=== PATIENT | female | born 1935 | race Caucasian/White ===

== ENCOUNTER 2020-07-25 11:28 | Inpatient (IN) | payer MEDICARE, OTHER ==
[~2020-07-25] VITALS: Ht 152.4 cm; Wt 89.4 kg
[2020-07-25] MEDS ORDERED: ACETAMINOPHEN 325 MG TABLET PO ONE (11:45)
[2020-07-25] MEDS ORDERED: MORPHINE SULFATE 2 MG/1 ML DISP.SYRIN IV ONE (11:45)
[2020-07-25] MEDS ORDERED: ONDANSETRON 4 MG/2 ML VIAL IV ONE ×2 (11:45→13:30)
[2020-07-25] MEDS ORDERED: ACETAMINOPHEN 325 MG TABLET ONE (11:48)
[2020-07-25] MEDS ORDERED: MORPHINE SULFATE 4 MG/1 ML DISP.SYRIN ONE (11:49)
[2020-07-25] MEDS ORDERED: ONDANSETRON 4 MG/2 ML VIAL ONE (11:49)
--- NOTE | 2020-07-25 11:51 | NUR ---
PT out of ER for CT.
[2020-07-25 12:00] LABS: BASOPHILS % (AUTO) 0.6 % (0.0-2.0); EOSINOPHILS # (AUTO) 0.1 K/uL (0.0-0.7); EOSINOPHILS % (AUTO) 1.1 % (0.0-7.0); HEMATOCRIT 34.1 % (31.2-41.9); HEMOGLOBIN 11.2 g/dL (10.9-14.3); LYMPHOCYTES # (AUTO) 0.8 K/uL (20.0-40.0); LYMPHOCYTES % (AUTO) 11.4 % (20.5-51.5); MEAN CORPUSCULAR HEMOGLOBIN 27.1 uug (24.7-32.8); MEAN CORPUSCULAR HGB CONC 33 g/dL (32.3-35.6); MEAN CORPUSCULAR VOLUME 82.3 fL (75.5-95.3); MONOCYTES # (AUTO) 0.6 K/uL (2.0-10.0); MONOCYTES % (AUTO) 7.9 % (0.0-11.0); NEUTROPHILS # (AUTO) 5.8 K/uL (1.8-8.9); PLATELET COUNT (AUTO) 369 K/uL (179-408); RED BLOOD CELL COUNT(AUTO) 4.14 MIL/uL (3.63-4.92); WHITE BLOOD COUNT (AUTO) 7.3 K/uL (3.8-11.8)
[2020-07-25] MEDS ORDERED: HYDR-3972 PO (12:00)
[2020-07-25] MEDS ORDERED: SIMV-49 PO (12:00)
[2020-07-25] MEDS ORDERED: INSU100V11 SQ (12:00)
[2020-07-25] MEDS ORDERED: CLOP75TA15 PO (12:00)
[2020-07-25] MEDS ORDERED: DILT-2 PO (12:00)
[2020-07-25] MEDS ORDERED: AZIL40TA PO (12:00)
[2020-07-25] MEDS ORDERED: FURO-151 PO (12:00)
[2020-07-25] MEDS ORDERED: ESCI10TA PO (12:00)
[2020-07-25] MEDS ORDERED: POTA10CA43 PO (12:00)
[2020-07-25] MEDS ORDERED: LANTUS SQ (12:00)
[2020-07-25] MEDS ORDERED: MECL-159 PO (12:00)
[2020-07-25] MEDS ORDERED: AZIL1TAB3 PO (12:00)
[2020-07-25 12:12] LABS: BILIRUBIN,DIRECT 0.2 mg/dL (0.0-0.2); BILIRUBIN,TOTAL 0.6 mg/dL (0.2-1.0); CREATININE 1.1 mg/dL (0.6-1.3); POTASSIUM 3.8 mmol/L (3.5-5.1); TOTAL PROTEIN, SERUM 7.3 g/dL (6.4-8.2)
--- NOTE | 2020-07-25 12:16 | NUR ---
Pt back from Ct, resting in bed. Pt states feeling better, and pain decreased.
--- NOTE | 2020-07-25 12:40 | NUR ---
COVID swab collected and sent to LAB.
[2020-07-25] MEDS ORDERED: FUROSEMIDE 40 MG/4 ML VIAL IV ONE (12:45)
[2020-07-25] MEDS ORDERED: ASPIRIN 81 MG TAB.CHEW PO ONE (12:45)
[2020-07-25] MEDS ORDERED: FUROSEMIDE 40 MG/4 ML VIAL ONE (12:55)
[2020-07-25] MEDS ORDERED: ASPIRIN 81 MG TAB.CHEW ONE (12:55)
--- NOTE | 2020-07-25 13:04 | NUR ---
Pt sleeping on the side, stating it feels better. Pt requested not to have monitor on at this time.
[2020-07-25] MEDS ORDERED: FENTANYL CITRATE 100 MCG/2 ML AMPUL IV ONE (13:15)
[2020-07-25] MEDS ORDERED: FENTANYL CITRATE 100 MCG/2 ML AMPUL ONE (13:22)
[2020-07-25] MEDS ORDERED: IV NORMAL SALINE 1000 ML BAG IV ONE (13:30)
--- NOTE | 2020-07-25 13:48 | NUR ---
Patient is resting comfortably in bed with eyes closed, NAD noted.
[2020-07-25] MEDS ORDERED: HYDROCODONE/APAP 5-325MG TABLET PO PRN (16:15)
[2020-07-25] MEDS ORDERED: MECLIZINE HCL 25 MG TABLET PO PRN (16:15)
[2020-07-25 16:20] VITALS: BP 159/57
[2020-07-25] MEDS ORDERED: ONDANSETRON 4 MG/2 ML VIAL IV PRN (16:30)
[2020-07-25] MEDS ORDERED: INSULIN REGULAR, HUMAN 300 UNITS/3 ML VIAL SQ PRN (16:30)
[2020-07-25] MEDS ORDERED: Z GUARD REMEDY PASTE 57 GM TUBE TOP PRN (16:30)
[2020-07-25] MEDS ORDERED: DEXTROSE 50% 50 ML DISP.SYRIN IV PRN ×2 (16:30→22:00)
[2020-07-25] MEDS ORDERED: INSULIN REGULAR, HUMAN 300 UNIT/3 ML VIAL SQ PRN (16:30)
[2020-07-25] MEDS ORDERED: MAGNESIUM HYDROXIDE 30 ML LIQUID UDC PO PRN (16:30)
[2020-07-25] MEDS ORDERED: BUMETANIDE INJ 4 MG in IV DEXTROSE 5% 24 ML IV ONE (16:45)
[2020-07-25] MEDS: BLOOD SUGAR DIAGNOSTIC 1 EACH STRIP VI SCH ×4 (17:15→21:00)
--- NOTE | 2020-07-25 17:30 | NUR ---
Received patient from ER via [place], on 2 LPM oxygen via [place]. Patient is alert, [place] speaking, not in any form of distress. Spoke to the daughter Amira for history and translated the conversation with the patient. No complain of any pain at this time. Patient admitted to telemetry. Routine admission care done. Informed Ramiro Tate DNP regarding admission. Patient seen and examined by Ramiro Tate DNP and Dr. Stanford (senior service technician). Patient pulled out peripheral line. Inserted a new line on the right hand G22. Assisted with her needs. Oriented patient to staff, room and use of devices with verbalized understanding. Call light and frequently used items placed within patient's reach.
--- NOTE | 2020-07-25 18:02 | NUR ---
Informed Ramiro Tate DNP regarding troponin result of 0.430, no new order.
[2020-07-25] MEDS: HYDROCODONE/APAP 5-325MG TABLET PO PRN ×2 (18:21→23:32)
[2020-07-25] MEDS: LISINOPRIL 10 MG TABLET PO SCH (18:42)
[2020-07-25] MEDS: INSULIN GLARGINE,HUM 300 UNITS/3 ML CARTRIDGE SQ SCH (21:00)
[2020-07-25] MEDS: SIMVASTATIN 10 MG TABLET PO SCH (21:29)
--- NOTE | 2020-07-25 22:30 | NUR ---
blood sugar in the 50's given OJ and D50; result relayed to Dr Tate with new orders to hold tonight's lantus and change aggressive coverage to mild. blood sugar went up to 200s; continue to monitor.
[2020-07-26 00:09] VITALS: BP 123/56
[2020-07-26] MEDS: ZOLPIDEM 5 MG TABLET PO PRN ×2 (01:48→22:10)
[2020-07-26] MEDS: HYDROCODONE/APAP 5-325MG TABLET PO PRN ×2 (04:08→08:11)
[2020-07-26 04:09] VITALS: BP 140/77
[2020-07-26] MEDS: BLOOD SUGAR DIAGNOSTIC 1 EACH STRIP VI SCH ×4 (06:28→21:00)
[2020-07-26 07:27] LABS: CREATININE 1.2 mg/dL (0.6-1.3); MAGNESIUM 1.7 mg/dL (1.8-2.4); PHOSPHOROUS 4.1 mg/dL (2.5-4.9); POTASSIUM 3.7 mmol/L (3.5-5.1)
[2020-07-26 07:37] LABS: BASOPHILS # (AUTO) 0.1 K/uL (0.0-8.0); BASOPHILS % (AUTO) 0.9 % (0.0-2.0); EOSINOPHILS # (AUTO) 0.2 K/uL (0.0-0.7); EOSINOPHILS % (AUTO) 3.2 % (0.0-7.0); HEMATOCRIT 32.4 % (31.2-41.9); HEMOGLOBIN 10.8 g/dL (10.9-14.3); LYMPHOCYTES # (AUTO) 1.2 K/uL (20.0-40.0); LYMPHOCYTES % (AUTO) 15.6 % (20.5-51.5); MEAN CORPUSCULAR HEMOGLOBIN 27.3 uug (24.7-32.8); MEAN CORPUSCULAR HGB CONC 33 g/dL (32.3-35.6); MEAN CORPUSCULAR VOLUME 82.1 fL (75.5-95.3); MONOCYTES # (AUTO) 0.7 K/uL (2.0-10.0); MONOCYTES % (AUTO) 9.5 % (0.0-11.0); NEUTROPHILS # (AUTO) 5.2 K/uL (1.8-8.9); NEUTROPHILS % (AUTO) 70.8 % (38.5-71.5); PLATELET COUNT (AUTO) 363 K/uL (179-408); RED BLOOD CELL COUNT(AUTO) 3.95 MIL/uL (3.63-4.92); WHITE BLOOD COUNT (AUTO) 7.4 K/uL (3.8-11.8)
--- NOTE | 2020-07-26 07:45 | NUR ---
RECEIVED PATIENT IN ROOM SLEEPING, EASY TO AWAKE. AOX2. COMPLAINS OF PAIN TO LOWER BACK AND BLE. WILL RECEIVE PAIN MEDICATION ORDERED. DENIES SOB OR CHEST PAIN AT THIS TIME. ON 2L O2 NC. SAFETY AND FALL PREVENTION IN PLACE. BED IN LOW AND LOCKED POSITION. CALL LIGHT IN REACH. BED ALARM ON. WILL CONTINUE TO MONITOR.
[2020-07-26] MEDS: CLOPIDOGREL 75 MG TABLET PO SCH (08:12)
[2020-07-26] MEDS: ASPIRIN EC 81 MG TABLET.DR PO SCH (08:12)
[2020-07-26] MEDS: POTASSIUM CHLORIDE 8 MEQ TAB.PRT.SR PO SCH (08:12)
[2020-07-26] MEDS: DILTIAZEM HCL CD 120 MG CAP.SR.24H PO SCH (08:12)
[2020-07-26] MEDS: ESCITALOPRAM OXALATE 10 MG TABLET PO SCH (08:12)
[2020-07-26] MEDS: LISINOPRIL 10 MG TABLET PO SCH (08:12)
[2020-07-26] MEDS: INSULIN REGULAR, HUMAN 300 UNIT/3 ML VIAL SQ PRN ×4 (08:21→22:16)
[2020-07-26] MEDS ORDERED: FUROSEMIDE 40 MG TABLET PO SCH (09:00)
[2020-07-26] MEDS ORDERED: MAGNESIUM SULFATE 1 GM in IV DEXTROSE 5% 100 ML IV SCH (10:15)
[2020-07-26] MEDS: ACETAMINOPHEN 325 MG TABLET PO PRN (10:56)
[2020-07-26] MEDS: MAGNESIUM SULFATE/D5W 100 ML IV SCH ×2 (11:01→12:15)
[2020-07-26 12:20] VITALS: BP 158/67
[2020-07-26] MEDS: HYDROCODONE/APAP 10-325 MG TABLET PO PRN ×2 (12:44→17:37)
[2020-07-26] MEDS: APIXABAN 2.5 MG TABLET PO SCH ×2 (14:50→22:15)
[2020-07-26 16:08] VITALS: BP 139/55
[2020-07-26] MEDS: FUROSEMIDE 40 MG TABLET PO SCH (16:26)
[2020-07-26] MEDS ORDERED: DEXAMETHASONE SOD PHOSPHATE 10 MG INJ IM ONE (18:45)
[2020-07-26] MEDS ORDERED: KETOROLAC TROMETHAMINE 30 MG INJ IVP ONE (18:45)
[2020-07-26 20:00] VITALS: BP 168/64
[2020-07-26] MEDS: SIMVASTATIN 10 MG TABLET PO SCH (22:10)
[2020-07-26] MEDS: INSULIN GLARGINE,HUM 300 UNITS/3 ML CARTRIDGE SQ SCH (22:16)
[2020-07-27] VITALS: BP 140/76
[2020-07-27] MEDS: HYDROCODONE/APAP 10-325 MG TABLET PO PRN ×3 (01:32→10:28)
[2020-07-27 06:27] VITALS: BP 114/69
[2020-07-27] MEDS: BLOOD SUGAR DIAGNOSTIC 1 EACH STRIP VI SCH ×4 (07:46→21:22)
[2020-07-27 08:00] VITALS: BP 152/74
[2020-07-27] MEDS: INSULIN REGULAR, HUMAN 300 UNIT/3 ML VIAL SQ PRN ×3 (08:10→17:31)
[2020-07-27] MEDS ORDERED: QUETIAPINE FUMARATE 25 MG TABLET PO ONE (09:00)
[2020-07-27] MEDS: FUROSEMIDE 40 MG TABLET PO SCH ×2 (09:19→17:22)
[2020-07-27] MEDS: POTASSIUM CHLORIDE 8 MEQ TAB.PRT.SR PO SCH (09:19)
[2020-07-27] MEDS: DILTIAZEM HCL CD 120 MG CAP.SR.24H PO SCH (09:19)
[2020-07-27] MEDS: ESCITALOPRAM OXALATE 10 MG TABLET PO SCH (09:19)
[2020-07-27] MEDS: ASPIRIN EC 81 MG TABLET.DR PO SCH (09:20)
[2020-07-27] MEDS: CLOPIDOGREL 75 MG TABLET PO SCH (09:20)
[2020-07-27] MEDS: LISINOPRIL 10 MG TABLET PO SCH (09:20)
[2020-07-27] MEDS: APIXABAN 2.5 MG TABLET PO SCH (09:21)
--- NOTE | 2020-07-27 10:49 | NUR ---
called radiology for CT lumbar spine. Wasn't able to bring patient down since patient woke up and got agitated and screaming. [employer] technician will come back later
[2020-07-27] MEDS ORDERED: INSULIN REGULAR, HUMAN 300 UNITS/3 ML VIAL SQ PRN (11:00)
[2020-07-27] MEDS ORDERED: DEXTROSE 50% 50 ML DISP.SYRIN IV PRN (11:00)
[2020-07-27 11:32] VITALS: BP 153/71
[2020-07-27] MEDS: MORPHINE SULFATE 2 MG/1 ML DISP.SYRIN IV PRN ×2 (11:48→19:37)
[2020-07-27] MEDS: CELECOXIB 100 MG CAPSULE PO SCH ×2 (15:57→20:06)
[2020-07-27 16:15] VITALS: BP 119/50
[2020-07-27] MEDS: OXYCODONE/APAP 5-325 MG TABLET PO PRN (18:00)
--- NOTE | 2020-07-27 18:59 | NUR ---
Patient in bed asleep at this time, on O2 @ 2L with no SOB or distress at this time. Patient very agitated and restless throughout shift. Yelling and trying to get out of chair. Pain management provided, Dr. Araujo came in to see patient. Informed daughter throughout shift regarding the situation. Called radiology for CT Lumbar spine since patient is calm now. Safety precaution and aspiration precaution in place. Not in distress at this time
--- NOTE | 2020-07-27 19:30 | NUR ---
Pt in bed, awake. Yelling and trying to get out of bed. Denies any acute distress/SOB. But complains of pain. Will assess and check if PRN medication is available. V/S stable on 2L NC tolerating well. NSR on tele monitor. Safety measures in place. Call light within reach. Will continue with the plan of care.
[2020-07-27 20:00] VITALS: BP 126/50
[2020-07-27] MEDS: SIMVASTATIN 10 MG TABLET PO SCH (20:06)
[2020-07-27] MEDS: APIXABAN 5 MG TABLET PO SCH (20:07)
[2020-07-27] MEDS ORDERED: INSULIN GLARGINE,HUM 300 UNITS/3 ML CARTRIDGE SQ SCH (21:00)
[2020-07-27] MEDS: ZOLPIDEM 5 MG TABLET PO PRN (22:37)
[2020-07-27] MEDS: ACETAMINOPHEN 325 MG TABLET PO PRN (22:37)
[2020-07-28] VITALS: BP 115/49
[2020-07-28] MEDS: OXYCODONE/APAP 5-325 MG TABLET PO PRN ×2 (02:23→09:19)
[2020-07-28 04:00] VITALS: BP 141/59
[2020-07-28] MEDS: ACETAMINOPHEN 325 MG TABLET PO PRN (05:00)
--- NOTE | 2020-07-28 06:11 | NUR ---
PT SLEPT INTERMITTENTLY THROUGH THE NIGHT. PT SCREAMING AND TRYING TO GET OUT OF BED. PAIN MANAGED THROUGHOUT THE SHIFT. REPOSITIONED Q2H FOR COMFORT. V/S STABLE ON 2L. COMFORT CARE AND NEEDS ATTENDED. FALL AND ASPIRATION PRECAUTION MAINTAINED. SAFETY MEASURES IN PLACE. BED LOW AND LOCKED IN POSITION. CALL LIGHT WITHIN REACH. WILL ENDORSE TO ONCOMING NURSE ACCORDINGLY.
[2020-07-28] MEDS: BLOOD SUGAR DIAGNOSTIC 1 EACH STRIP VI SCH ×2 (06:34→12:02)
--- NOTE | 2020-07-28 08:00 | NUR ---
Noted edema+3 on ALY LE's and Redness noted. PT is in no acute distress. Pt on fall and aspiration precaution. Pain management implemented. Call light is within reach.
[2020-07-28] MEDS: CLOPIDOGREL 75 MG TABLET PO SCH (08:13)
[2020-07-28] MEDS: FUROSEMIDE 40 MG TABLET PO SCH (08:13)
[2020-07-28] MEDS: ESCITALOPRAM OXALATE 10 MG TABLET PO SCH (08:13)
[2020-07-28] MEDS: POTASSIUM CHLORIDE 8 MEQ TAB.PRT.SR PO SCH (08:13)
[2020-07-28] MEDS: LISINOPRIL 10 MG TABLET PO SCH (08:14)
[2020-07-28] MEDS: DILTIAZEM HCL CD 120 MG CAP.SR.24H PO SCH (08:14)
[2020-07-28] MEDS: APIXABAN 5 MG TABLET PO SCH (08:15)
[2020-07-28] MEDS: CELECOXIB 100 MG CAPSULE PO SCH (08:15)
[2020-07-28] MEDS: INSULIN REGULAR, HUMAN 300 UNIT/3 ML VIAL SQ PRN ×2 (08:18→12:15)
[2020-07-28] MEDS: ASPIRIN EC 81 MG TABLET.DR PO SCH (08:24)
[2020-07-28] MEDS: MORPHINE SULFATE 2 MG/1 ML DISP.SYRIN IV PRN ×2 (08:31→15:09)
[2020-07-28 12:00] VITALS: BP 148/47
[2020-07-28] MEDS ORDERED: GLUCERNA SHAKE 237 ML CAN PO SCH (12:30)
[2020-07-28] MEDS ORDERED: CELE100C PO (12:45)
[2020-07-28] MEDS ORDERED: DEXL60CA3 PO (12:45)
[2020-07-28 15:39] VITALS: BP 126/57
--- NOTE | 2020-07-28 16:00 | NUR ---
Spoke with HEMALATHA, daughter of patient, about discharge instructions. Instructed to set appt with DR NOVAK ([facility] given)for pain management As soon as possible. IV DC. Pt is in no acute distress. No sob noted. o2 sat 95% R/A. Pt will f/u with PMD re Vaccinations and to make appt within 1 week.
== END 2020-07-28 15:45 | disposition home or self-care (01) | DRG 280 ==
LOC: ER 11:28 → TELE3 14:42
PROVIDERS: ADMIT Nurse Practitioner Acute Care; ATTEND Nurse Practitioner Acute Care
DX: I11.0 Hypertensive heart disease with heart failure (principal); I21.4 Non-ST elevation (NSTEMI) myocardial infarction; E43 Unspecified severe protein-calorie malnutrition; D68.69 Other thrombophilia; I25.10 Atherosclerotic heart disease of native coronary artery without angina pectoris; Z95.5 Presence of coronary angioplasty implant and graft; E78.5 Hyperlipidemia, unspecified; Z79.02 Long term (current) use of antithrombotics/antiplatelets; G89.4 Chronic pain syndrome; E66.01 Morbid (severe) obesity due to excess calories; J44.9 Chronic obstructive pulmonary disease, unspecified; I48.91 Unspecified atrial fibrillation; Z79.899 Other long term (current) drug therapy; I89.0 Lymphedema, not elsewhere classified; Z68.38 Body mass index [BMI] 38.0-38.9, adult; J45.909 Unspecified asthma, uncomplicated; M47.27 Other spondylosis with radiculopathy, lumbosacral region; I50.43 Acute on chronic combined systolic (congestive) and diastolic (congestive) heart failure; E11.9 Type 2 diabetes mellitus without complications; M48.061 Spinal stenosis, lumbar region without neurogenic claudication; Z91.81 History of falling; M43.17 Spondylolisthesis, lumbosacral region
CPT/HCPCS: 36415; 70030-TC; 71045; 72131; 83690; 83735; 84100; 85025; 93005; 93307; A4663; G0378; J1100; J1815; J1885; J1940; J2270; J2405; J3010; J3475; J3490; J7030; J7040; J7060

== ENCOUNTER 2021-08-18 13:42 | Inpatient (IN) | payer MEDICARE, OTHER ==
[~2021-08-18] VITALS: Ht 157.5 cm; Wt 82.8 kg
[~2021-08-18 13:42] MED LIST: AZIL1TAB3 PO; AZIL40TA PO; CELE100C PO; CLOP75TA15 PO; DEXL60CA3 PO; DILT-2 PO; ESCI10TA PO; FURO-151 PO; HYDR-3972 PO; INSU100V11 SQ; LANTUS SQ; MECL-159 PO; POTA10CA43 PO; SIMV-49 PO
--- NOTE | 2021-08-18 13:55 | NUR ---
Patient BIB [facility] from home, c/o dizziness, almost falling/blacking out few hours [employer]. Pt also c/o nausea. First contact, patient AO x 3, no signs of acute distress. VSS. Denies chest pain or palpitation at this time. Noted with bilateral leg swelling and redness, with hx of CHF. Pt ambulatory with steady gait, need standby assistance. No other concerns otherwise. Kep comfortable in bed, with blankets and side rails up x 2.
--- NOTE | 2021-08-18 13:59 | NUR ---
Dr Lacy at bedside for MSE.
[2021-08-18] MEDS ORDERED: ONDANSETRON HCL 4 MG TABLET PO ONE (14:15)
[2021-08-18] MEDS ORDERED: IV NORMAL SALINE 500 ML BAG IV ONE (14:15)
[2021-08-18 14:35] LABS: MEAN CORPUSCULAR HEMOGLOBIN 28.4 uug (24.7-32.8); MEAN CORPUSCULAR VOLUME 85.2 fL (75.5-95.3); PLATELET COUNT (AUTO) 355 K/uL (179-408)
[2021-08-18 14:45] LABS: CARBON DIOXIDE 28 mmol/L (21-32); CHLORIDE 106 mmol/L (98-107); CREATININE 1.5 mg/dL (0.6-1.3); GLUCOSE 128 mg/dL (74-106); POTASSIUM 4.6 mmol/L (3.5-5.1); UREA NITROGEN, BLOOD 35 mg/dL (7-18)
[2021-08-18 14:50] LABS: ALANINE AMINOTRANSFERASE 19 U/L (14-59); ALKALINE PHOSPHATASE 98 U/L (50-136); ASPARTATE AMINOTRANSFERASE 10 U/L (15-37); BILIRUBIN,DIRECT 0.1 mg/dL (0.0-0.2); BILIRUBIN,TOTAL 0.5 mg/dL (0.2-1.0); TOTAL PROTEIN, SERUM 6.9 g/dL (6.4-8.2)
[2021-08-18] MEDS ORDERED: ONDANSETRON 4 MG/2 ML VIAL ONE (15:04)
--- NOTE | 2021-08-18 15:59 | NUR ---
Nursing telesales supervisor made aware that patinet is pending admission/need 1 tele female bed.
--- NOTE | 2021-08-18 16:27 | NUR ---
PT'S DAUGHTER TO BRING UPDATED MED LIST AOON POSSIBLE.
--- NOTE | 2021-08-18 16:30 | NUR ---
Paged EPIC panel call.
--- NOTE | 2021-08-18 16:49 | NUR ---
Dr Beltran s/w Dr Lacy and accepted patient into Tele/Syncope. Dtr at bedside stated that she will take all pt's belongings. Pt will be sent upstairs with no belongings.
--- NOTE | 2021-08-18 17:30 | NUR ---
Per Nursing [employer], no admission nurses this shift, patient will have to be held in ED in the time being until next shift. Pt is resting with no signs of distress, denies chest pain, palpitations or dizziness.
--- NOTE | 2021-08-18 17:49 | NUR ---
Patient's blood sugar before dinner is 129. Pt has a freestyle blood sugar machine connected subcutaneously on her LLQ abdomen. Diabetic Dinner provided. Pt able to feed herself.
--- NOTE | 2021-08-18 18:20 | NUR ---
Pt able to ambulate from bed to bathroom and void x 3 during this shift.
[2021-08-18] MEDS ORDERED: BUTA-247 PO (18:29)
[2021-08-18] MEDS ORDERED: MV-M1TAB18 PO ×2 (18:29)
[2021-08-18] MEDS ORDERED: MIRT-93 PO (18:29)
[2021-08-18] MEDS ORDERED: AZIL1TAB3 PO (18:29)
[2021-08-18] MEDS ORDERED: EZET10TA15 PO (18:29)
[2021-08-18] MEDS ORDERED: PROP20TA7 PO (18:29)
[2021-08-18] MEDS ORDERED: POTA10CA43 PO (18:29)
[2021-08-18] MEDS ORDERED: FURO40TA5 PO (18:29)
[2021-08-18] MEDS ORDERED: SPIR25TA6 PO (18:29)
[2021-08-18] MEDS ORDERED: INSU100C4 SQ (18:29)
[2021-08-18] MEDS ORDERED: ISOS60TA72 PO (18:29)
[2021-08-18] MEDS ORDERED: INSU100V7 SQ (18:29)
[2021-08-18] MEDS ORDERED: ASPIRIN 81 MG TAB.CHEW PO ONE (18:45)
--- NOTE | 2021-08-18 18:49 | NUR ---
Patient resting in bed, no signs of distress. PO meds tolerated with no issues. Kept warm and comfortable, as verbalized. Will continue to monitor and endorse to incoming shift.
[2021-08-18] MEDS ORDERED: ASPIRIN 81 MG TAB.CHEW ONE (18:52)
--- NOTE | 2021-08-18 21:17 | NUR ---
Pt. admitted to Telemetry, under care of Dr. Beltran. Dx: syncope Belongs List completed
[2021-08-18 22:02] VITALS: BP 162/67
[2021-08-18] MEDS: MIRTAZAPINE 15 MG TABLET PO SCH (22:21)
[2021-08-18] MEDS: SIMVASTATIN 40 MG TABLET PO SCH (22:22)
[2021-08-19 04:22] VITALS: BP 104/50
--- NOTE | 2021-08-19 05:27 | NUR ---
Pt admitted to Tele, SR on monitor. Denies chest pain or SOB at this time. Able to ambulate with assistance. IV site intact. No distress noted. Will endorse to day shift.
[2021-08-19] MEDS ORDERED: ONDANSETRON 4 MG/2 ML VIAL IV PRN (06:45)
[2021-08-19] MEDS ORDERED: ACETAMINOPHEN 325 MG TABLET PO PRN (06:45)
--- NOTE | 2021-08-19 07:15 | NUR ---
Received patient in bed. AOx4. On room air. No signs of acute distress. No signs of acute distress. Patient denies pain/ discomfort at this time. Patient denies chest pain. NSR on property assessment monitor. IV access patent and intact. Call light within reach. Bed alarm on for safety. Will continue to monitor.
[2021-08-19 07:58] LABS: HEMATOCRIT 35.1 % (31.2-41.9); MEAN CORPUSCULAR HEMOGLOBIN 28.1 uug (24.7-32.8); MEAN CORPUSCULAR VOLUME 85.4 fL (75.5-95.3); PLATELET COUNT (AUTO) 338 K/uL (179-408)
[2021-08-19 08:02] LABS: CREATININE 1.2 mg/dL (0.6-1.3); POTASSIUM 4.4 mmol/L (3.5-5.1)
[2021-08-19] MEDS: PANTOPRAZOLE SODIUM 40 MG TABLET.DR PO SCH (08:07)
[2021-08-19 08:08] LABS: BILIRUBIN,TOTAL 0.6 mg/dL (0.2-1.0); MAGNESIUM 1.8 mg/dL (1.8-2.4); PHOSPHOROUS 3.7 mg/dL (2.5-4.9); TOTAL PROTEIN, SERUM 6.3 g/dL (6.4-8.2)
[2021-08-19] MEDS: ISOSORBIDE MONONITRATE 60 MG TAB.SR.24H PO SCH ×2 (08:48→17:00)
[2021-08-19] MEDS: EZETIMIBE 10 MG TABLET PO SCH (08:48)
[2021-08-19] MEDS: CLOPIDOGREL 75 MG TABLET PO SCH (08:48)
[2021-08-19 10:46] LABS: THYROID STIMULATING HORMONE 1.57 mIU/mL (0.358-3.740)
[2021-08-19 11:49] VITALS: BP 117/51
[2021-08-19] MEDS ORDERED: DEXTROSE 50% 50 ML DISP.SYRIN IV PRN (12:00)
[2021-08-19 16:03] VITALS: BP 112/52
[2021-08-19] MEDS: BLOOD SUGAR DIAGNOSTIC 1 EACH STRIP VI SCH ×2 (17:01→21:47)
[2021-08-19] MEDS: INSULIN REGULAR, HUMAN 300 UNIT/3 ML VIAL SQ PRN ×2 (17:03→21:53)
--- NOTE | 2021-08-19 18:43 | NUR ---
Patient resting in bed. AOx4. On room air. No signs of acute distress. Patient compliant with medications and care. NSR on site monitor. IV access patent and intact. Bed locked and in low position for safety. Call light within reach. Will endorse to incoming shift for continuity of care.
[2021-08-19] MEDS: MIRTAZAPINE 15 MG TABLET PO SCH (20:08)
[2021-08-19] MEDS: SIMVASTATIN 40 MG TABLET PO SCH (20:08)
[2021-08-19] MEDS ORDERED: DOCUSATE SODIUM 250 MG CAPSULE PO SCH (21:00)
[2021-08-19] MEDS ORDERED: DOCUSATE SODIUM 100 MG CAPSULE PO SCH (21:00)
--- NOTE | 2021-08-19 22:10 | NUR ---
Patient alert and able to make needs known.Denies chest pain. On Ra.no respiratory distress noted. BS checked 297.Refused insulin at this time.Risk and benefits explained x3.Patient still refused.Stated she knows her BS will go down in the morning.Insisting not to give her insulin.NSr on tele.Assisted patient to bathroom.Voided well.Will continue to monitor.
[2021-08-20] VITALS: BP 138/54
[2021-08-20 04:00] VITALS: BP 136/56
[2021-08-20 05:28] LABS: HEMATOCRIT 34.8 % (31.2-41.9); MEAN CORPUSCULAR HEMOGLOBIN 28.3 uug (24.7-32.8); MEAN CORPUSCULAR VOLUME 86.1 fL (75.5-95.3); PLATELET COUNT (AUTO) 352 K/uL (179-408)
[2021-08-20 05:41] LABS: CREATININE 1.3 mg/dL (0.6-1.3); MAGNESIUM 1.9 mg/dL (1.8-2.4); PHOSPHOROUS 4.1 mg/dL (2.5-4.9); POTASSIUM 4.8 mmol/L (3.5-5.1)
[2021-08-20] MEDS: PANTOPRAZOLE SODIUM 40 MG TABLET.DR PO SCH (06:11)
[2021-08-20] MEDS: BLOOD SUGAR DIAGNOSTIC 1 EACH STRIP VI SCH (07:27)
--- NOTE | 2021-08-20 08:15 | NUR ---
offered patient humulin r as per order, per patient no i dont take that at home. I dont want that insulin, i want my insulin from home , explained risk and benefit against refusing insulin, per patient "my daughter is going to pick me up." explained again to patient that her blood sugar is 291 and that it is important to take insulin to prevent blood sugar from spiking, patient states no i wont take insulin but i will take my pills. morning po medication administered as ordered.
--- NOTE | 2021-08-20 08:30 | NUR ---
received call from daughter stating i am going to [employer] my mother. explained risk and benefits of leaving against medical advice, per daughter i understand i will sign the ama paperwork and i will pick her up. Henrry Duke notified.
[2021-08-20 09:08] VITALS: BP 145/70
[2021-08-20] MEDS: ISOSORBIDE MONONITRATE 60 MG TAB.SR.24H PO SCH (09:08)
[2021-08-20] MEDS: EZETIMIBE 10 MG TABLET PO SCH (09:08)
[2021-08-20] MEDS: CLOPIDOGREL 75 MG TABLET PO SCH (09:08)
--- NOTE | 2021-08-20 09:30 | NUR ---
Daughter in unit, all ama paperwork signed, again explained risk and benefits, all belongings accounted for. patient left with daughter. iv removed minimal bleeding noted to site, dressing applied, arm band removed as well. patient left with v/s wnl, ambulating with stable gait and with no signs of hyperglycemia.
== END 2021-08-20 10:00 | disposition left against medical advice (07) | DRG 280 ==
LOC: ER 13:42 → TELE3 21:31
PROVIDERS: ADMIT Internal Medicine; ATTEND Hospitalist
DX: I21.4 Non-ST elevation (NSTEMI) myocardial infarction (principal); N17.0 Acute kidney failure with tubular necrosis; I50.32 Chronic diastolic (congestive) heart failure; D68.59 Other primary thrombophilia; E44.0 Moderate protein-calorie malnutrition; E11.9 Type 2 diabetes mellitus without complications; I25.2 Old myocardial infarction; I25.10 Atherosclerotic heart disease of native coronary artery without angina pectoris; Z95.5 Presence of coronary angioplasty implant and graft; I11.0 Hypertensive heart disease with heart failure; E66.9 Obesity, unspecified; Z68.32 Body mass index [BMI] 32.0-32.9, adult; E78.5 Hyperlipidemia, unspecified; G89.29 Other chronic pain; I48.91 Unspecified atrial fibrillation; Z79.01 Long term (current) use of anticoagulants; Z79.4 Long term (current) use of insulin; Z79.02 Long term (current) use of antithrombotics/antiplatelets; Z79.899 Other long term (current) drug therapy; M41.84 Other forms of scoliosis, thoracic region; I89.0 Lymphedema, not elsewhere classified; M19.90 Unspecified osteoarthritis, unspecified site; I35.2 Nonrheumatic aortic (valve) stenosis with insufficiency; J45.909 Unspecified asthma, uncomplicated; Z91.041 Radiographic dye allergy status; Z20.822 Contact with and (suspected) exposure to COVID-19
CPT/HCPCS: 36415; 70030-TC; 70450; 71045; 83605; 83735; 84100; 84443; 85025; 93005; 93307; 93880; A4663; A6209; G0378; J1815; J2405; J7030